=== PATIENT | male | born 1975 | race Caucasian/White ===

== ENCOUNTER 2020-04-30 19:54 | Emergency (ER) | payer MEDICAID, SELFPAY ==
[2020-04-30 19:55] VITALS: BP 130/86; PULSE 104; RESP 19; TEMP 36.9; O2SAT 98; BMI 28.1
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
[2020-04-30 20:58] VITALS: BP 130/86; PULSE 104; RESP 19; TEMP 36.9; O2SAT 98
== END 2020-04-30 21:00 | disposition home or self-care (01) ==
PROVIDERS: Emergency Provider Nurse Practitioner
DX: S52.022A Displaced fracture of olecranon process without intraarticular extension of left ulna, initial encounter for closed fracture (principal); V29.00XA Motorcycle driver injured in collision with unspecified motor vehicles in nontraffic accident, initial encounter; Y92.488 Other paved roadways as the place of occurrence of the external cause
CPT/HCPCS: 29105; 73080; 96372; 99203; G0463

== ENCOUNTER → 2020-05-06 09:06 | Outpatient (CLI) | payer MEDICAID, SELFPAY ==
--- NOTE | 2020-05-06 09:12 | XR_ITS ---
PROCEDURE: XR ELBOW LT MIN 3V CLINICAL INDICATION: LT elbow Left elbow pain, injury COMPARISON: CR XR ELBOW LT MIN 3V from 04/30/2020 FINDINGS: Mildly displaced fracture involves the base of the olecranon process. This fracture is comminuted. This is not significantly changed 04/30/2020. Radial head has an unremarkable appearance as does the distal humerus. IMPRESSION: No change distracted comminuted fracture at the base of the olecranon process Dictated by: Jerod Guillen MD 05/06/2020 11:34 Jerod Guillen MD in [place] 05/06/2020 11:34
== END ==
PROVIDERS: Visit Provider Orthopaedic Surgery
DX: M25.522 Pain in left elbow (principal)
CPT/HCPCS: 73080

== ENCOUNTER → 2020-05-09 14:18 | Outpatient (CLI) | payer MEDICAID, SELFPAY ==
--- NOTE | 2020-05-09 14:28 | CT_ITS ---
PROCEDURE: CT ELBOW LT WO CON CLINICAL HISTORY: left elbow fracture. preop planning. Follow-up fracture, preoperative planning COMPARISON: CR XR ELBOW LT MIN 3V from 05/06/2020 TECHNIQUE: Axial images obtained with sagittal and coronal reformats. All CT scans at the facility use one or more dose reduction, viz: automated exposure control, ma/kV adjustment per patient size (including targeted exams where dose is matched to indication, i.e. head), or iterative reconstruction technique. FINDINGS: A severely comminuted fracture involves the base of the olecranon process. Multiple comminuted fragments are present and are distracted approximately. The fracture fragment that is closest to the main portion of the ulna is distracted by 1 cm. A 2nd fracture fragment proximal to this region is also distracted by 1 cm. There is intra-articular hemarthrosis. The radial head and neck appear intact. The humerus appears intact distally. The coronoid process appears in place. IMPRESSION: Comminuted fracture of the olecranon process of the ulna with proximal distraction of the fracture fragments as described above. No dislocation. Intra-articular hemarthrosis is noted. Dictated by: Jerod Guillen MD 05/10/2020 09:18 Jerod Guillen MD in [place] 05/10/2020 09:18
[2020-05-09 14:56] LABS: Basophils % 0.4 % (0.1-2.0); Eosinophils # 0.1 K/mm3 (0.0-0.4); Eosinophils % 1.5 % (0.1-12.0); Hematocrit 47.3 % (42.0-52.0); Hemoglobin 15.5 g/dL (14.1-18.0); Lymphocytes # 2.7 K/mm3 (0.7-4.5); Lymphocytes % 38.2 % (10-50); Mean Corpuscular HGB Conc 32.8 g/dL (31.8-35.4); Mean Corpuscular Hemoglobin 31.1 pg (27.0-31.2); Mean Corpuscular Volume 94.7 fl (80-94); Mean Platelet Volume 7.5 fl (7.4-10.4); Monocytes # 0.4 K/mm3 (0.1-1.0); Monocytes % 5.8 % (1.7-9.3); Neutrophils # 3.9 K/mm3 (1.8-7.8); Neutrophils % 54.2 % (37.0-80.0); Platelet Count 255 K/mm3 (142-424); Red Blood Count 4.99 M/mm3 (4.60-6.20); Red Cell Distribution Width 13.6 % (11.5-17.5); White Blood Count 7.2 K/mm3 (4.8-10.8)
[2020-05-09 15:28] LABS: Alanine Aminotransferase 25 U/L (12-78); Albumin Level 4.4 g/dl (3.5-5.0); Albumin/Globulin Ratio 1.3 (1.1-1.8); Alkaline Phosphatase 101 U/L (38-126); Anion Gap 10.3 mEq/L (5-15); Aspartate Amino Transferase 27 U/L (17-59); Bilirubin,Total 0.4 mg/dl (0.2-1.3); Blood Urea Nitrogen 15 mg/dl (9-20); Calcium 9.7 mg/dl (8.4-10.2); Carbon Dioxide 29 mmol/L (22.0-30.0); Chloride 104 mmol/L (98-107); Estimated Glomerular Filt Rate 80 ml/min (>60); GFR (African American) 97 ML/MIN (>60); Globulin 3.4 g/dL (1.3-3.2); Glucose 110 mg/dl (74-100); Potassium 4.3 mmoL/L (3.5-5.1); Sodium 139 mmol/L (136-145); Total Protein,Serum 7.8 g/dl (6.3-8.2)
[2020-05-09 15:53] LABS: Coronavirus 19 IgG Antibody Negative (Negative); Coronavirus 19 IgM Antibody Negative (Negative)
== END ==
PROVIDERS: Visit Provider Orthopaedic Surgery
DX: Z01.818 Encounter for other preprocedural examination (principal); Z20.822 Contact with and (suspected) exposure to COVID-19; S52.023A Displaced fracture of olecranon process without intraarticular extension of unspecified ulna, initial encounter for closed fracture
CPT/HCPCS: 36415; 73200; 80053; 85025; 86328

== ENCOUNTER 2020-05-10 06:10 | Day surgery (SDC) | payer MEDICAID, SELFPAY ==
[2020-05-09 12:43] VITALS: BMI 26.4
[2020-05-10] VITALS (10 sets, daily range): BP systolic 122–146; BP diastolic 60–93; PULSE 91–114; RESP 13–18; TEMP 36.4–36.7; O2SAT 93–100
--- NOTE | 2020-05-10 08:56 | HMH.ANESCL ---
[facility] Anesthesia Checklist - Patient Identification Patient Identification: Arm Band - Structural Data Admitted From: Home Planned Operative Procedure/s: ORIF Left Olecranon Consent for Planned Operative Procedure(s) Verified: Yes Verified Documents: Surgical Consent, History and Physical - NPO Status Verified Time NPO: 00:00 - Additional verifications Anesthesia Reactions: No Hx Blood Transfusions: No Blood Transfusion Reaction: No - Airway Assessment C-Spine Mobility Assessed: Yes (MP2) TMJ Mobility Assessed: Yes Dentition: Poor Dentition - Neurological Assessment Level of Consciousness: Awake, Alert - Anesthesia Plan Anesthesia Risk discussed: Yes Anesthesia Plan: Verified ASA Class: II Anesthesia Type: General w/block (Supraclavicular Nerve Block. Risks/benefits explained in detail. Pt verbalizes understanding) [facility] History I have reviewed the patient's past medical history: Yes Medical History: Denies:: Cancer, Diabetes Mellitus Type 1, Diabetes Mellitus Type 2, Internal Pacemaker, MRSA, Seizures *Have you ever received a pneumonia vaccine?: No *Have you received a flu vaccine this season?: Yes Other Medical History: Denies: Blood Transfusion Reaction Anesthesia experience/problems:: nac Other Surgeries: Yes: Other. No: Pacemaker Amputation: No Fractures: Yes - *Social History Last grade of school completed: 11th or 12th Smoking Status: Current every day smoker Tobacco Type: cigarettes # Packs/Day (cigarettes): 1 Alcohol Intake: former Substance Use Type: former substance user *Occupational Status:: unemployed Housing: house *Travel in the last 8 weeks: None Family Hx:: Heart Attack, Thyroid Disorder, Alcoholism
--- NOTE | 2020-05-10 09:31 | XR_ITS ---
PROCEDURE: XR ELBOW LT 2V CLINICAL INDICATION: ORIF LEFT ELBOW COMPARISON: CR XR ELBOW LT MIN 3V from 04/30/2020 CR XR ELBOW LT MIN 3V from 05/06/2020 FINDINGS: Fluoroscopy time: 1 minutes and 25 seconds. Two images submitted following the exam shows good position status post ORIF of the comminuted olecranon process fracture. Dorsal bone plate with multiple cortical screws are present. Other findings:None. IMPRESSION: Good alignment status post ORIF olecranon process fracture Dictated by: Jerod Guillen MD 05/10/2020 16:43 Jerod Guillen MD in [place] 05/10/2020 16:43
--- NOTE | 2020-05-10 10:14 | P.PN_ITS ---
[facility] Anesthesia Record Part I Intake, IV Amount: 1,200 Estimated blood loss (mL): 100 Urine output (mL): 0 Blood Pressure: 136/68 SaO2: 94 Pulse Rate: 91 Respiratory Rate: 16 Temperature: 98.1 F Patient is:: Drowsy, Stable Stable to PACU at:: 10:10
--- NOTE | 2020-05-10 10:56 | PC.NURSE ---
Repositioned pt, had pt cough and deep breath several times.
--- NOTE | 2020-05-10 14:27 | HMH.ANESII ---
[facility] Anesthesia Record Part II Discharge Time: 10:39 Destination: Surgical Day Care (OP Surgery) PACU nurse assessment reviewed?: Yes Patient Condition:: Good Anesthesia Complications:: None Swallowing reflex intact?: Yes Cyanosis?: No Blood Pressure: 122/60 Pulse Rate: 91 Temperature: 97.8 F Mental Status: Alert & Oriented Pain level:: 0 Nausea and/or vomitting:: None Intake, IV Amount: 0
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
== END 2020-05-10 11:17 | disposition home or self-care (01) ==
LOC: OR 06:12
PROVIDERS: Visit Provider Orthopaedic Surgery
PROC: (CPT 24685; principal; 2020-05-10 07:30)
DX: S52.022A Displaced fracture of olecranon process without intraarticular extension of left ulna, initial encounter for closed fracture (principal); Z72.0 Tobacco use; Z79.899 Other long term (current) drug therapy; V19.88XA Pedal cyclist (driver) (passenger) injured in other specified transport accidents, initial encounter
CPT/HCPCS: 24685; 73070; 76000; 96374; C1713; C1776; J2405; J2710

== ENCOUNTER → 2020-05-16 10:30 | Outpatient (CLI) | payer MEDICAID, SELFPAY ==
--- NOTE | 2020-05-16 10:33 | XR_ITS ---
PROCEDURE: XR ELBOW LT MIN 3V CLINICAL INDICATION: s/p ORIF LT elbow Follow-up fracture/ COMPARISON: CR XR ELBOW LT MIN 3V from 04/30/2020 CR XR ELBOW LT MIN 3V from 05/06/2020 CR XR ELBOW LT 2V from 05/10/2020 FINDINGS: There is a dorsal bone plate stabilizing the fracture at the olecranon process with multiple cortical screws. There remains good alignment of the fracture fragments. There is a posterior splint in place. The joint spaces are well-preserved. No significant degenerative/arthritic changes. No erosive changes evident. Other findings:None. IMPRESSION: Good alignment status post ORIF olecranon process fracture Dictated by: Jerod Guillen MD 05/16/2020 11:13 Jerod Guillen MD in [place] 05/16/2020 11:13
== END ==
PROVIDERS: Visit Provider Orthopaedic Surgery
DX: S52.023A Displaced fracture of olecranon process without intraarticular extension of unspecified ulna, initial encounter for closed fracture (principal)
CPT/HCPCS: 73080